=== PATIENT | female | born 1990 | race Caucasian/White ===

== ENCOUNTER 2020-08-03 09:08 | Inpatient (IN) | payer MEDICAID ==
[~2020-08-03] VITALS: Ht 165.1 cm; Wt 88.9 kg
[2020-08-03] MEDS ORDERED: NALOXONE HCL 0.4 MG/ML 1ML VIAL IM PRN (10:15)
[2020-08-03] MEDS ORDERED: LACTATED RINGERS 1,000 ML IV SCH (10:15)
[2020-08-03] MEDS ORDERED: CARBOPROST TROMETHAMINE 250 MCG/ML AMPUL IM PRN (10:15)
[2020-08-03] MEDS ORDERED: MISOPROSTOL 100MCG TABLET VG SCH (10:15)
[2020-08-03] MEDS ORDERED: METHYLERGONOVINE MALEATE 0.2 MG/ML IM PRN (10:15)
[2020-08-03] MEDS ORDERED: CITRIC ACID/SODIUM CITRATE SOLN 30ML UDC PO ONE (11:15)
[2020-08-03 11:19] LABS: BASOPHILS % 0.7 % (0.0-2.0); CLARITY URINE CLEAR (CLEAR); COLOR URINE YELLOW (YELLOW); EOSINOPHILS % 3.8 % (0.0-5.0); HEMATOCRIT. 36.9 % (36.0-48.0); HEMOGLOBIN. 12.5 g/dL (12.0-16.0); KETONES URINE NEGATIVE (NEGATIVE); LEUKOCYTE ESTERASE URINE NEGATIVE (NEGATIVE); LYMPHOCYTES % 29.3 % (20.0-50.0); MEAN CORPUSCULAR HEMOGLOBIN 31.9 pg (28.0-32.0); MEAN CORPUSCULAR VOLUME 94.6 fL (81.0-99.0); MEAN PLATELET VOLUME 9.1 fl (7.4-10.4); MONOCYTES % 9.3 % (2.0-8.0); NEUTROPHILS % 56.9 % (40.0-76.0); NITRITE URINE NEGATIVE (NEGATIVE); OCCULT BLOOD URINE NEGATIVE (NEGATIVE); PLATELET 202 x1000/uL (130-400); PROTEIN URINE TRACE (NEGATIVE); RED CELL DISTRIBUTION WIDTH 15.9 % (11.6-14.6); SPECIFIC GRAVITY URINE 1.029 (1.005-1.030); UROBILINOGEN URINE 0.2 E.U./dL (0.2-1.0)
[2020-08-03 11:29] LABS: INR 0.9; PROTHROMBIN TIME 9.7 sec (9.6-11.0)
[2020-08-03] MEDS ORDERED: FENTANYL CITRATE/PF 50MCG/ML 2ML VIAL ONE (11:40)
[2020-08-03] MEDS ORDERED: MORPHINE SULFATE/PF 1MG/ML 10ML AMP ONE (11:40)
[2020-08-03] MEDS ORDERED: OXYTOCIN 10 UNITS/ML 1ML ONE (11:41)
[2020-08-03] MEDS ORDERED: METOCLOPRAMIDE HCL 10MG/2ML VIAL ONE (11:41)
[2020-08-03] MEDS ORDERED: ONDANSETRON HCL 4MG/2ML INJ ONE (11:41)
[2020-08-03] MEDS ORDERED: CEFAZOLIN SODIUM 1000MG/VIAL ONE (11:41)
[2020-08-03] MEDS ORDERED: SODIUM CHLORIDE 0.9% 10ML VIAL ONE ×2 (11:41→11:49)
[2020-08-03] MEDS ORDERED: PHENYLEPHRINE HCL 10 MG/ML 1ML (IV VIAL) IV ONE (11:41)
[2020-08-03] MEDS ORDERED: EPHEDRINE SULFATE 50MG/ML VIAL ONE (11:41)
[2020-08-03 12:02] LABS: *AMPHETAMINES SCREEN URINE NEGATIVE (NEGATIVE); *BARBITURATES SCREEN URINE NEGATIVE (NEGATIVE); *BENZODIAZEPINES SCREEN URINE NEGATIVE (NEGATIVE); *COCAINE SCREEN URINE NEGATIVE (NEGATIVE)
[2020-08-03 12:03] LABS: CANNABINOID URINE SCREEN NEGATIVE (NEGATIVE); METHADONE URINE SCREEN NEGATIVE (NEGATIVE); OPIATES URINE SCREEN NEGATIVE (NEGATIVE); PHENCYCLIDINE URINE SCREEN NEGATIVE (NEGATIVE)
[2020-08-03 12:24] LABS: HEPATITIS B SURFACE ANTIGEN NEGATIVE
[2020-08-03] MEDS ORDERED: ONDANSETRON HCL 4MG/2ML INJ IV PRN (13:15)
[2020-08-03] MEDS ORDERED: DEXT 5%/LR + PITOCIN 20UNITS/L 1,000 ML IV SCH (13:15)
[2020-08-03] MEDS ORDERED: IBUPROFEN 400MG TABLET PO PRN (13:15)
[2020-08-03] MEDS ORDERED: METOCLOPRAMIDE HCL 10MG/2ML VIAL IV NR (13:15)
[2020-08-03] MEDS ORDERED: KETOROLAC 30MG/ML VIAL IV NR (13:15)
[2020-08-03] MEDS ORDERED: BISACODYL 10MG SUPP PR PRN (13:15)
[2020-08-03] MEDS ORDERED: HYDROMORPHONE HCL/PF 2MG/ML CPJ IV PRN (13:15)
[2020-08-03] MEDS ORDERED: MEPERIDINE HCL/PF 25MG/ML CPJ IV PRN (13:15)
[2020-08-03] MEDS ORDERED: RHO(D) IMMUNE GLOBULIN 300 MCG/SYR IM PRN (13:15)
[2020-08-03 16:45] VITALS: BP 128/68
[2020-08-03] MEDS: DEXT 5%/LR + PITOCIN 20UNITS/L 1,000 ML IV SCH (16:59)
[2020-08-03 17:15] VITALS: BP 117/71
[2020-08-03] MEDS: KETOROLAC 30MG/ML VIAL IV PRN ×2 (17:30→23:25)
[2020-08-03 20:00] VITALS: BP 123/76
[2020-08-03 23:25] VITALS: BP 127/75
[2020-08-04] MEDS: DEXT 5%/LR + PITOCIN 20UNITS/L 1,000 ML IV SCH (01:26)
[2020-08-04 04:00] VITALS: BP 116/62
[2020-08-04 06:20] LABS: BASOPHILS % 0.4 % (0.0-2.0); EOSINOPHILS % 0.5 % (0.0-5.0); HEMOGLOBIN. 11.1 g/dL (12.0-16.0); LYMPHOCYTES % 13.9 % (20.0-50.0); MEAN CORPUSCULAR VOLUME 95.7 fL (81.0-99.0); MEAN PLATELET VOLUME 8.6 fl (7.4-10.4); MONOCYTES % 7.9 % (2.0-8.0); NEUTROPHILS % 77.3 % (40.0-76.0); PLATELET 193 x1000/uL (130-400); RED BLOOD CELL COUNT 3.45 mill/uL (4.2-5.4); RED CELL DISTRIBUTION WIDTH 15.9 % (11.6-14.6)
[2020-08-04] MEDS: KETOROLAC 30MG/ML VIAL IV PRN (06:25)
[2020-08-04 07:45] VITALS: BP 130/78
[2020-08-04] MEDS: IBUPROFEN 800MG TABLET PO PRN ×2 (10:31→19:00)
[2020-08-04 16:54] VITALS: BP 120/70
[2020-08-04 19:50] VITALS: BP 124/77
[2020-08-05 04:30] VITALS: BP 121/77
[2020-08-05 08:00] VITALS: BP 124/70
[2020-08-05 16:00] VITALS: BP 122/74
[2020-08-05] MEDS: IBUPROFEN 800MG TABLET PO PRN (18:04)
[2020-08-05 20:00] VITALS: BP 127/74
[2020-08-06] VITALS: BP 122/66
[2020-08-06 03:59] VITALS: BP 105/59
[2020-08-06] MEDS ORDERED: PREN-52 MT (04:12)
[2020-08-06] MEDS ORDERED: FERR325T6 MT (04:12)
[2020-08-06] MEDS ORDERED: IBUP-2030 PO (04:12)
[2020-08-06 08:15] VITALS: BP 128/76
[2020-08-06] MEDS: IBUPROFEN 800MG TABLET PO PRN (12:24)
== END 2020-08-06 13:55 | disposition home or self-care (01) | DRG 540 ==
LOC: 8 EST LDRP 09:08 → 8EST 16:48
PROVIDERS: ADMIT Obstetrics & Gynecology; ATTEND Obstetrics & Gynecology
PROC: 10D00Z1 Extraction of Products of Conception, Low, Open Approach (ICD-10-PCS; principal; 2020-08-03)
DX: O32.8XX0 Maternal care for other malpresentation of fetus, not applicable or unspecified (principal); O69.81X0 Labor and delivery complicated by cord around neck, without compression, not applicable or unspecified; Z3A.40 40 weeks gestation of pregnancy; Z37.0 Single live birth
CPT/HCPCS: 36415; 80305; 81003; 85025; 86592; 86703; 86762; 86850; 86900; 86920; 87340; 88307; J0690; J1885; J2274; J2370; J2405; J2590; J2765; J3010; J3490; A4315